=== PATIENT | female | born 1980 | race Two or more races ===

== ENCOUNTER 2022-05-29 06:00 | Day surgery (SDC) | payer OTHER ==
[~2022-05-29] VITALS: Ht 175.3 cm; Wt 90.7 kg
[2022-05-29] MEDS ORDERED: NAPR500T14 PO (11:20)
[2022-05-29] MEDS ORDERED: MORGIDOX100 MG PO (11:20)
== END 2022-05-29 14:15 | disposition home or self-care (01) ==
LOC: CIR.AMB 06:00
PROVIDERS: ATTEND Obstetrics & Gynecology
DX: D25.0 Submucous leiomyoma of uterus (principal); N81.11 Cystocele, midline; Z20.822 Contact with and (suspected) exposure to COVID-19; Z86.16 Personal history of COVID-19